=== PATIENT | female | born 1970 | race Hispanic/Latino ===

== ENCOUNTER 2017-12-31 12:01 | Emergency (ER) | payer SELFPAY ==
[2017-12-31] MEDS ORDERED: METHYLPREDNISOLONE SOD SUCC 125MG/2ML VIAL ONE (13:05)
[2017-12-31] MEDS ORDERED: IPRATROPIUM/ALBUTEROL SULFATE 3 ML SOLUTION IH ONE (13:11)
== END 2017-12-31 14:25 | disposition home or self-care (01) ==
LOC: EDH 12:01
DX: J20.9 Acute bronchitis, unspecified (principal); Z72.0 Tobacco use
CPT/HCPCS: 71046; 81025; 94640; 96374; 99285; J2930